=== PATIENT | female | born 1965 | race Caucasian/White ===

== ENCOUNTER → 2020-04-24 12:36 | Outpatient (CLI) | payer OTHER, SELFPAY ==
--- NOTE | ~2020-04-24 | MM_ITS ---
EXAMINATION: MM screening luciana BI w dina HISTORY: Screening mammogram TECHNIQUE: Craniocaudal and mediolateral oblique 3-D tomosynthesis images were obtained and synthetic 2-D images were generated. CAD analysis was submitted and interpreted. COMPARISON: 07/17/2017, 05/03/2016, 04/17/2015 bilateral digital screening mammogram examinations BREAST PARENCHYMAL COMPOSITION: The breasts are heterogeneously dense, which may obscure small masses . FINDINGS: There is no evidence of suspicious mass, calcification, or architectural distortion to sugg est malignancy in either breast. There has been no suspicious interval change. IMPRESSION: 1. No mammographic evidence of malignancy. 2. Recommend routine screening mammography in one year. BI-RADS Category 1: Negative Reviewed, dictated and finalized at location A.
== END ==
PROVIDERS: Visit Provider Obstetrics & Gynecology
DX: Z12.31 Encounter for screening mammogram for malignant neoplasm of breast (principal)
CPT/HCPCS: 77063; 77067

== ENCOUNTER 2021-01-20 08:06 | Emergency (ER) | payer OTHER, SELFPAY ==
[2021-01-20 08:10] VITALS: BP 103/71; PULSE 93; RESP 18; TEMP 36.7; O2SAT 98
--- NOTE | 2021-01-20 08:25 | ED.FEMALEGU ---
HPI - Female Genitourinary General Chief complaint: Urogenital-Female Stated complaint: Poss UTI Time Seen by Provider: 01/20/21 08:30 Source: patient and RN notes reviewed Mode of arrival: ambulatory Limitations: no limitations History of Present Illness HPI Narrative: 55-year-old female presents concern for urinary tract infection. Reports symptoms started last night with dysuria, urgency. She denies fever, nausea, vomiting, back pain, hematuria. Reports she had a sleeve gastrectomy 1 week ago. MD elicited complaint: UTI Related Data Allergies Allergy/AdvReac Type Severity Reaction Status Date / Time No Known Allergies Allergy Unknown Verified 01/20/21 08:20 Review of Systems Review of Systems: Narrative: CONSTITUTIONAL: Denies malaise, chills, sweats, or fever. CARDIOVASCULAR: Denies chest pain, palpitations, or edema. RESPIRATORY: Denies cough or dyspnea. GASTROINTESTINAL: Denies abdominal pain, nausea, vomiting GENITOURINARY: Reports dysuria, urgency. Denies flank pain, frequency, hematuria. SKIN: Denies rash or itching. MUSCULOSKELETAL: Denies back pain or myalgia. All systems reviewed & are unremarkable except as noted in HPI and below PMFSH Past Medical History Medical History (Updated 01/20/21 @ 08:36 by Jaylin Capone NP) History of vaginal delivery HTN (hypertension), benign Hyperlipidemia Hypothyroidism Obesity (BMI 30.0-34.9) Surgical History Surgical History H/O: section History of ankle surgery Family History Family History Father Diabetes mellitus Family history of cardiovascular disease Mother Hypertension Social History Social History Smoking status: Never smoker Second hand tobacco smoke exposure: No Alcohol intake: current Comments At time of signature, agree with nursing past medical, surgical, social and family history. There is no relevant family history pertinent to the presenting complaint Exam Narrative: Exam Narrative: GENERAL: Well-appearing, well-nourished, and in no acute distress. HEAD: Normocephalic. EYES: PERRLA, conjunctivae clear. NECK: Supple. No lymphadenopathy CHEST: Clear to auscultation. No respiratory distress. HEART: Regular rate and rhythm. ABDOMEN: Soft, nontender upon palpation, nondistended, normal active bowel sounds, no palpable or pulsatile masses, no guarding. No CVA tenderness SKIN: Warm, dry, no rash. NEURO: Alert and oriented x3. PSYCH: Normal mood and affect Course Course Emergency Course: Patient is aware of diagnosis, understands and agrees to treatment plan. Anticipatory guidance given. Patient agrees to follow-up as directed and is aware of reasons to seek care at the emergency department. Portions of this record may have been created with voice recognition software Vital Signs Vital signs: Vital Signs Temperature 98.1 F 01/20/21 08:10 Pulse Rate 93 01/20/21 08:10 Respiratory Rate 18 01/20/21 08:10 Blood Pressure 103/71 01/20/21 08:10 Pulse Oximetry 98 01/20/21 08:10 Temperature 98.1 F 01/20/21 08:10 Pulse Rate 93 01/20/21 08:10 Respiratory Rate 18 01/20/21 08:10 Blood Pressure 103/71 01/20/21 08:10 Pulse Oximetry 98 01/20/21 08:10 Reviewed. MDM - Female Genitourinary MDM Narrative Medical decision making narrative: Exam findings and UA show no acute concerns or changes; patient is non-toxic appearing and is in no distress. Patient is appropriate for outpatient treatment and follow-up. Differential Diagnosis Differential diagnosis: Likely urinary tract infection and cystitis Lab Data Labs: Urine Glucose Negative Reference Range: Negative Urine Bilirubin Negative Reference Range: Nega
== END 2021-01-20 08:45 | disposition home or self-care (01) ==
PROVIDERS: Emergency Provider Nurse Practitioner; PCP Family Medicine
DX: R30.0 Dysuria (principal); R39.15 Urgency of urination; Z98.84 Bariatric surgery status; I10 Essential (primary) hypertension; E78.5 Hyperlipidemia, unspecified; E03.9 Hypothyroidism, unspecified
CPT/HCPCS: 81003; 87077; 87086; 87088; 87186; 99213; G0463

== ENCOUNTER → 2022-08-06 15:36 | Outpatient (CLI) | payer OTHER, SELFPAY ==
--- NOTE | ~2022-08-06 | MM_ITS ---
EXAMINATION: MM screening luciana BI w dina HISTORY: Screening mammogram TECHNIQUE: Craniocaudal and mediolateral oblique 3-D tomosynthesis images were obtained and synthetic 2-D images were generated. CAD analysis was submitted and interpreted. COMPARISON: 04/24/2020, 07/17/2017, 05/03/2016 bilateral screening mammogram examinations BREAST PARENCHYMAL COMPOSITION: The breasts are heterogeneously dense, which may obscure small masses . FINDINGS: There is no evidence of suspicious mass, calcification, or architectural distortion to sugg est malignancy in either breast. There has been no suspicious interval change. IMPRESSION: 1. No mammographic evidence of malignancy. 2. Recommend routine screening mammography in one year. BI-RADS Category 1: Negative Reviewed, dictated and finalized at location A. [facility]
== END ==
PROVIDERS: PCP Family Medicine; Visit Provider Obstetrics & Gynecology
DX: Z12.31 Encounter for screening mammogram for malignant neoplasm of breast (principal)
CPT/HCPCS: 77063; 77067

== ENCOUNTER 2024-11-24 08:21 | Emergency (ER) | payer OTHER, SELFPAY ==
[2024-11-24 08:25] VITALS: BP 98/76; PULSE 103; RESP 16; TEMP 36.7; O2SAT 98
--- OUTSIDE RECORDS SUMMARY | 2024-11-24 08:34 | XMS_ITS | Clinical Summary ---
Author Organization [facility] [address] Address [address] [place] [address] Care Team Providers Care Residential Real Estate Appraiser Name Role Phone Ashvin Clemente MD Primary Care Provider [phone] Allergies No known active allergies Medications FLUoxetine (PROzac) 20 mg capsule Take 1 capsule (20 mg total) by mouth daily [address] (PROTONIX) 40 mg EC tablet 9 Active levothyroxine (SYNTHROID) 125 mcg tablet Take 1 tablet (125 mcg total) by mouth early childhood associate teacher before breakfast Active cyclobenzaprine (FLEXERIL) 10 mg tablet Take 1 tablet (10 mg total) by mouth daily Active coenzyme Q10 10 mg capsule Take 1 capsule (10 mg total) by mouth daily Active pitavastatin calcium (LIVALO) 1 mg tablet Take 1 tablet (1 mg total) by mouth nightly 30 tablet 11 1 Active atorvastatin (LIPITOR) 10 mg tablet Take 1 tablet (10 mg total) by mouth nightly 2 Active guaiFENesin-cod eine (GUAITUSS AC) liquid 100-10 mg/5 mL TAKE 5 ML BY MOUTH EVERY 4 HOURS NEEDED FOR COUGH 2 Active famotidine (PEPCID) 20 mg tablet Take 1 tablet (20 mg total) by mouth 2 (two) times a day 1 Active ALPRAZolam (XANAX) 0.25 mg tablet TAKE 1 TABLET BY MOUTH EVERY 4 HOURS NEEDED FOR FLYING 3 Active aspirin 81 mg enteric coated tablet Take 1 tablet (81 mg total) by mouth daily 2 Active Active Problems Problem Noted Date Diagnosed Date Gastroesophageal reflux disease without esophagi tis 04/20/2024 Vitamin D deficiency 04/08/2022 Age-related osteoporosis wit hout current pathological fracture 02/12/2019 Overview (01/03/2020): Reclast 04/13/2019, Ergocalciferol monthly, dietary calcium. Exercise running, swim, weight and biking. Ankle fracture in 2005. Surgical History Surgery Date Site/Laterality Comments ANKLE SURGERY SECTION Medical History Medical History Date Comments Hypertension Hyperlipidemia Thyroid disease Acid indigestion Gastroesophageal reflux disease without esophagi tis 04/20/2024 Family History Medical History Relation Name Comments Heart disease Father Hypertension Father Osteoporosis Maternal Grandmother Family history of osteoporosis - (Added by TW Conv) Hip fracture Mother Hypertension Mother Osteoporosis Mother Family history of osteoporosis - (Added by TW Conv) Heart defect Other 1 Heart abnormali ty - (Added by TW Conv) Osteoporosis Other 2 Family history of osteoporosis - (Added by TW Conv) Osteoporosis Paternal Grandmother Family history of osteoporosis - (Added by TW Conv) Broken bones Neg Hx Kyphosis Neg Hx Scoliosis Neg Hx Relation Name Status Comments Brother Alive Father (Age 72) Maternal Grandmother Mother Alive Other 1 Other 2 Paternal Grandmother Social History Tobacco Use Types Packs/Day Years Used Date Smoking Tobacco: Never Smokeless Tobacco: Never Tobacco Cessation:Counseling Given: Not Answered Alcohol Use Standard Drinks/Week Comments Yes 1 (1 standard drink = 0.6 oz pur e alcohol) weekly Comments Unknown Sex and Gender Information Value Date Recorded Sex Assigned at Not on file 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 Gender Identity Not on file Sexual Orientation Not on file Obstetrics History Last Filed Vital Signs Vital Sign Reading Time Taken Comments Blood Pressure 126/82 06/04/2024 10:50 AM CDT Pulse 72 06/04/2024 10:50 AM CDT Temperature 36.6 C (97.9 F) 06/04/2024 10:50 AM CDT Respiratory Rate 18 06/04/2024 10:50 AM CDT Oxygen Saturation 100% 06/04/2024 10:50 AM CDT Inhaled Oxygen Concentration - - Weight 61.4 kg (135 lb 4.8 oz) 04/20/2024 8:46 A M CDT Height 156.2 cm (5' 1.5 ) 04/20/2024 8:46 AM CDT Body Mass Index 25.15 04/20/2024 8:46 AM CDT Plan of Treatment Health Maintenance Due Date Last Done Comments Breast Cancer Screening-Mammogram 1964 Cervical Cancer Screening 1964 Colon Cancer Screening-Colonoscopy 1964 Depression Screening 1964 Hepatitis C Screening 1964 DTaP/Tdap/Td Vaccine (1 - Tdap) 1975 Hepatitis B Screening 1982 Regular Well Visit/Exam 18-64 1982 Zoster Vaccine (1 of 2) 2014 Covid-19 Vaccine (2023-2 5 season) 2024 12/08/2020, 11/18/2020 Influenza Vaccine (#1) 2024 Pneumococcal vaccine <65 Aged Out No longer eligible based on patient's age to complete this topic Insurance [facility] CHOICE [facility]US [facility] CHOICE PLUS Care Teams Residential Real Estate Appraiser Relationship Specialty Start Date End Date Ashvin Clemente MD PCP - General Family Medicine 10/19/18
--- OUTSIDE RECORDS SUMMARY | 2024-11-24 08:34 | XMS_ITS | CONTINUITY OF CARE DOCUMENT ---
Author Name digna sawyer Address Unknown Organization [facility] Address [address] [place] [address] [address] [place] [address] Phone [phone] Care Team Providers Care Air Tucker Name Role Phone Mathew JUSTIN, Tmoi Unavailable [phone] NEAL OAKES MD Unavailable NEAL OAKES MD Unavailable PROBLEMS Condition Status Date Provider Notes Cardiovascular screening active Alyx Clark INSURANCE PROVIDERS Payer name Policy type / Coverage type [place] red republican ID SELF PAY TREATMENT PLAN Date Name CT, Coronary Calcium Score HISTORY OF PROCEDURES Procedure Date Procedure Name Provider Procedure Notes S tatus CT- Coronary CA score Tomi Carmona MD completed
--- OUTSIDE RECORDS SUMMARY | 2024-11-24 08:34 | XMS_ITS | Encounter Summary ---
Author Organization [facility] Address [address] [place] [address] Care Team Providers Care Legal Administrative Assistant Name Role Phone Ashvin Clemente MD Primary Care Provider [phone] Encounter Details Date Type Department Care Team (Late st Contact Info) Description 11/23/2024 External Device Data [facility] ABSTRACTION Provider, Abstract NO ADDRESS ON FILE Social History Tobacco Use Types Packs/Day Years Used Date Smoking Tobacco: Never Smokeless Tobacco: Never Alcohol Use Standard Drinks/Week Comments Yes 0 (1 standard drink = 0.6 oz pur e alcohol) social Comments No Sex and Gender Information Value Date Recorded Sex Assigned at Not on file 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 [place] [address] Martín Camarena, [place] [address] [facility] [address] [place] [address] documented as of this encounter Visit Diagnoses Not on filedocumented in this encounter Care Teams Legal Administrative Assistant Relationship Specialty Start Date End Date Ashvin Clemente MD PCP - General Family Practice 01/02/21 documented as of this encounter
--- OUTSIDE RECORDS SUMMARY | 2024-11-24 08:34 | XMS_ITS | Referral Summary ---
Author Organization [facility] [address] Address [address] [place] [address] Care Team Providers Care Architectural Wood Model Maker Name Role Phone Ashvin Clemente MD Primary Care Provider [phone] Allergies No known active allergies Medications FLUoxetine (PROzac) 20 mg capsule Take 1 capsule (20 mg total) by mouth daily [address] (PROTONIX) 40 mg EC tablet 9 Active levothyroxine (SYNTHROID) 125 mcg tablet Take 1 tablet (125 mcg total) by mouth early childhood education coordinator before breakfast Active cyclobenzaprine (FLEXERIL) 10 mg [...] weight and biking. Ankle fracture in 2005. 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
--- OUTSIDE RECORDS SUMMARY | 2024-11-24 08:34 | XMS_ITS | Clinical Summary ---
Author Organization [facility] Address [address] [place] [address] Phone Care Team Providers Care Pmo Analyst Name Role Phone Ashvin Clemente MD Primary Care Provider [phone] Allergies No known active allergies Medications levothyroxine 125 mcg tablet Take 112 mcg by mouth daily in the morning. Active pantoprazole sodium (PANTOPRAZOLE ORAL) Take 40 mg by mouth daily. Active FLUoxetine (PROzac) 20 mg tablet Take 20 mg by mouth daily. Active famotidine (PEPCID) 20 mg tablet Take 1 Tablet (20 mg) by mouth 2 times daily. 60 Tablet 2 01/13/2021 1:40 PM CDT 1 Active Additional Information Patient not taking.Reported on 03/23/2024 atorvastatin (LIPITOR) 10 mg tablet Take 10 mg by mouth daily. Active cyclobenzaprine (FLEXERIL) 10 mg tablet Take 10 mg by mouth 3 times daily as needed for Spasm. Active aspirin (Chelita Low Dose Aspirin) 81 mg Tablet, Delayed Release (E.C.) Take 1 Tablet (81 mg) by mouth daily. 30 Tablet 2 Active metoprolol succinate (TOPROL XL) 25 mg Extended Release 24 hour tablet TAKE 1 TABLET BY MOUTH EVERY DAY 90 Tablet 3 3 Active Additional Information Patient taking differently:25 mg Oral DAILY,Taking as needed, Reported on 03/23/2024 ALPRAZolam (XANAX) 0.25 mg tablet TAKE 1 TABLET BY MOUTH EVERY 4 HOURS NEEDED WHEN FLYING Active lisinopriL (PRINIVIL) 2.5 mg tablet TAKE 1 TABLET (2.5MG) BY MOUTH ONCE DAILY 4 Active Active Problems Problem Noted Date Diagnosed Date Obesity (BMI 30.0-34.9) 01/12/2021 HTN (hypertension), benign 01/12/2021 Palpitations 01/12/2021 Hypothyroidism 01/12/2021 HLD (hyperlipidemia) 01/12/2021 GERD (gastroesophageal reflux disease) Major depression 01/12/2021 Age-related osteoporosis wit hout current pathological fracture 02/12/2019 Overview (01/12/2021): Reclast 04/13/2019, Ergocalciferol monthly, dietary calcium. Exercise running, swim, weight and biking. Ankle fracture in 2005. Chest discomfort Encounters Date Type Department Care Team Description 11/23/2024 External Device Data ST[facility] ABSTRACTION Provider, Abstract 10/20/2024 External Device Data [facility] ABSTRACTION Provider, Abstract 10/19/2024 External Device Data [facility] ABSTRACTION Provider, Abstract 10/05/2024 External Device Data [facility] ABSTRACTION Provider, Abstract from Last 3 Months Social History Tobacco Use Types Packs/Day Years Used Date Smoking Tobacco: Never Smokeless Tobacco: Never Tobacco Cessation:Counseling Given: Not Answered Alcohol Use Standard Drinks/Week Comments Yes 0 (1 standard drink = 0.6 oz pur e alcohol) social Comments No Sex and Gender Information Value Date Recorded Sex Assigned at Not on file 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 Gender Identity Not on file Sexual Orientation Not on file Last Filed Vital Signs Vital Sign Reading Time Taken Comments Blood Pressure 108/66 03/23/2024 9:31 AM CDT Pulse 74 03/23/2024 9:31 AM CDT Temperature 37.1 C (98.7 F) 04/17/2022 7:15 PM CDT Respiratory Rate 15 04/17/2022 7:15 PM CDT Oxygen Saturation 98% 03/23/2024 9:31 AM CDT Inhaled Oxygen Concentration - - Weight 61.7 kg (136 lb) 03/23/2024 9:31 AM CDT Height 157.5 cm (5' 2 ) 03/23/2024 9:31 AM CDT Body Mass Index 24.87 03/23/2024 9:31 AM CDT Plan of Treatment Upcoming Encounters Date Type Department Care Team (Late st Contact Info) Description 03/22/2025 9:30 AM CDT Office Visit [facility]ART AND [facility]ASCULAR EP AT [facility] [address] [place] [phone] Martín Camarena DNP [address] [place] [address] Health Maintenance Due Date Last Done Comments DTAP/TDAP/TD VACCINES (1 - Tdap) 1983 CERVICAL CANCER SCREENING 1994 BREAST CANCER SCREENING 2004 COLORECTAL SCREENING 2009 Colorectal Cancer Screening 2009 FIT-DNA Q 3 years 2009 FIT/FOBT Q 1 year 2009 Flex Sig/CT Colonography Q 5 years 2009 ZOSTER VACCINE (1 of 2) 2014 INFLUENZA VACCINE (#1) 2024 RSV VACCINE (60+ or ) (1 - 1-dose 75+ series) 2039 HEPATITIS B VACCINES Aged Out No long er eligible based on patient's age to complete this topic PNEUMOCOCCAL VACCINE 0-64 YEARS Aged Out No longer eligible based on patient's age to complete this topic Medical Devices Implanted Type Area Client Partner Device Identifier Shelf Expiration Date Model / Serial / Lot Seamguard Endogia 60 Prpl [id number] - [id number] Implanted:Qt y: 1 on 01/12/2021 by Beverley Esquivel MD at [facility] N/A: Stomach [employer] [id number] 06/16/2023 12BSGTRI 60P / / [id number] Seamguard Endogia 60 Prpl [id number] - [id number] Implanted:Qt y: 1 on 01/12/2021 by Beverley Esquivel MD at [facility] N/A: Stomach [employer] [id number] 06/20/2023 12BSGTRI 60P / / [id number] Seamguard Endogia 60 Blk [id number] - [id number] Implanted:Qt y: 1 on 01/12/2021 by Beverley Esquivel MD at [facility] N/A: Stomach [employer] [id number] 06/23/2023 12BSGTRI 60B / / [id number] Seamguard Endogia 60 Blk [id number] - [id number] Implanted:Qt y: 1 on 01/12/2021 by Beverley Esquivel MD at [facility] N/A: Stomach [employer] [id number] 06/23/2023 12BSGTRI 60B / / [id number] Dev Vns Vasc Clsr Vascade M[address] St [id number] - [id number] Implanted:Qt y: 1 on 04/17/2022 at [facility] Closure Device Right: Groin [employer] 01/30/2024 800-612C -10U / / [id number] Dev Vns Vasc Clsr Vascade Mvp [address] [id number] - [id number] Implanted:Qt y: 1 on 04/17/2022 at [facility] Closure Device Right: Groin [employer] 01/30/2024 800-612C -10U / / [id number] Dev Vns Vasc Clsr Vascade Mvp [address] [id number] - [id number] Implanted:Qt y: 1 on 04/17/2022 at [facility] Closure Device Right: Groin [employer] 01/30/2024 800-612C -10U / / [id number] Insurance RX [employer] Member Subscriber Plan / Payer (Ef fective 2021-Present) Name:Savanna Mason Relation to Subscriber:Not on file Name:Savanna Mason Subscriber ID:Not on file Payer ID:Not on file Group ID:[id number] Type:RX Commercial Address: [place]AYLA[address] KEN [employer]NAL) [facility] CHOICE [id number] Advance Directives For more information, please contact: [phone] * Full Code (Latest Code Status on File) Date Activated Date Inactivated Comments 04/17/2022 5:55 PM 04/17/2022 10:37 PM * Full Code Date Activated Date Inactivated Comments 04/17/2022 12:09 PM 04/17/2022 5:55 PM * Full Code Date Activated Date Inactivated Comments 01/12/2021 2:56 PM 01/13/2021 4:14 PM Care Teams Pmo Analyst Relationship Specialty Start Date End Date Ashvin Clemente MD PCP - General Family Practice 01/02/21
--- OUTSIDE RECORDS SUMMARY | 2024-11-24 08:36 | XMS_ITS | CONTINUITY OF CARE DOCUMENT ---
Author Name digna sawyer Address Unknown Organization [facility] Address [address] [place] [address] [address] [place] [address] Phone [phone] Care Team Providers Care Dietary Aide Teacher Name Role Phone Mathew JUSTIN, Tomi Unavailable NEAL OAKES MD Unavailable NEAL OAKES MD Unavailable PROBLEMS Condition Status Date Provider Notes Cardiovascular screening active Alyx Clark INSURANCE PROVIDERS Payer name Policy type / Coverage type [place] red democrat ID SELF PAY TREATMENT PLAN Date Name CT, Coronary Calcium Score HISTORY OF PROCEDURES Procedure Date Procedure Name Provider Procedure Notes S tatus CT- Coronary CA score Tomi Carmona MD completed
--- NOTE | 2024-11-24 08:39 | ED.URI ---
HPI - URI/Sore Throat General Chief Complaint: Upper Respiratory Infection Stated Complaint: Sore Throat Time Seen by Provider: 11/24/24 08:39 Source: patient, RN notes reviewed and old records reviewed Mode of arrival: ambulatory Limitations: no limitations History of Present Illness HPI Narrative: 59 year old female presents to [facility] care with complaints of sore throat, headache and some intermittent fevers, some body aches, for the past 3 days. Patient reports painful swallowing describes throat discomfort as burning. Patient has been taking Tylenol for her discomfort and intermittent fevers. MD elicited complaint: sore throat Onset (ago): day(s) (3) Consistency: constant Severity: moderate Able to tolerate fluids by mouth: Yes Exacerbating factors: swallowing Treatments prior to arrival: acetaminophen Related Data Allergies Allergy/AdvReac Type Severity Reaction Status Date / Time No Known Allergies Allergy Unknown Verified 07/28/24 15:23 Review of Systems Review of Systems: CONSTITUTIONAL: reports malaise, chills, sweats, or fever. EYES: Denies visual changes, redness, or discharge. ENT: Reports rhinorrhea, congestion, no sinus pain, no otalgia and positive sore throat. CARDIOVASCULAR: Denies chest pain, palpitations, or edema. RESPIRATORY: Reports occasional dry cough.? Denies dyspnea. GASTROINTESTINAL: Denies abdominal pain, nausea, vomiting, diarrhea SKIN: Denies rash or itching. MUSCULOSKELETAL:Reports myalgia. NEUROLOGIC: Reports headache. All systems reviewed & are unremarkable except as noted in HPI and below PMFSH Past Medical History Medical History Cough Fatigue HTN (hypertension), benign Obesity (BMI 30.0-34.9) History of vaginal delivery Hyperlipidemia Hypothyroidism Reflux esophagitis Surgical History Surgical History H/O cardiac radiofrequency ablation S/P laparoscopic sleeve gastrectomy History of ankle surgery H/O: section Family History Family History Father Diabetes mellitus Family history of cardiovascular disease Mother Hypertension Vascular dementia Social History Social History Smoking status: Never smoker Second hand tobacco smoke exposure: No Alcohol intake: current Substance use: never Lack of Transportation: No Lack of Food: Never True Current Housing: I Have Housing Concerned About Future Housing: No Difficulty Paying Gas/Electric Bills: No Difficulty Paying for Meds: No Currently Unemployed: No Education: Master's Degree or Higher Difficulty w/ Childcare or Family Care: No Living arrangements: with family Occupation/Education: occupation Gender identity (if verbalized by the patient): Female Sexual Orientation (if Verbalized by the Patient): Straight or Heterosexual Spiritual care concerns: No Comments At time of signature, agree with nursing past medical, surgical, social and family history. There is no relevant family history pertinent to the presenting complaint Exam Narrative: GENERAL: Well-appearing, well-nourished, and in no acute distress. HEAD: Normocephalic EYES: PERRLA, conjunctivae clear ENT: Nares clear, turbinates edematous and erythematous, clear discharge. Mucous membranes moist. TM pearly campos with dull light reflex bilaterally; no tragal tenderness. Oropharynx erythematous without lesions. Tonsils red and enlarged and without exudate, no drooling, no hoarseness, no trismus, uvula midline.post nasal drainage noted painful swallowing NECK: Supple. lymphadenopathy CHEST: Clear to auscultation, breath sounds equal. No wheezing, rhonchi, rales, or stridor. No respiratory distress, speaks in full sentences. occasional dry cough SAO2 98% on room air HEART: Regular rate and rhythm. No murmur heard. SKIN: Warm, dry, no rash. NEURO: Alert and oriented x3. PSYCH: Normal mood and affect Course Course Emergency Course: Patient is aware of diagnosis, understands and agrees to treatment plan.? Anticipatory guidance given.? Patient agrees to follow-up as directed and is aware of reasons to seek care at the emergency department. Portions of this record may have been created with voice recognition software Level of Care: Express Care Visit Vital Signs Vital signs: Vital Signs Temperature 36.7 C 11/24/24 08:25 Pulse Rate 103 H 11/24/24 08:25 Respiratory Rate 16 11/24/24 08:25 Blood Pressure 98/76 L 11/24/24 08:25 Pulse Oximetry 98 11/24/24 08:25 Temperature 36.7 C 11/24/24 08:25 Pulse Rate 103 H 11/24/24 08:25 Respiratory Rate 16 11/24/24 08:25 Blood Pressure 98/76 L 11/24/24 08:25 Pulse Oximetry 98 11/24/24 08:25 Reviewed MDM - URI/Sore Throat MDM Narrative Medical decision making narrative: Differential diagnosis considered: Srivastava virus, strep pharyngitis, allergic rhinitis, upper respiratory tract infection, sinusitis, rhinosinusitis, nasopharyngitis. viral pharyngitis, otitis media, otitis externa, pneumonia, bronchitis, viral cough syndrome, viral syndrome, and influenza.? Exam findings show no acute concerns or changes; patient is non-toxic appearing and is in no distress.? Patient is appropriate for outpatient treatment and follow-up. Differential Diagnosis Differential diagnosis: Likely upper respiratory infection, viral infection, pharyngitis and other (strep pharyngitis) Medical Records Attestation: I reviewed the patient's medical records. Lab Data Attestation: I reviewed the patient's lab results. Lab results narrative: strep screen positive Labs: Lab Results 11/24/24 Range/Units 08:59 POC Grp A Strep Screen Positive (Negative) Critical Care Time Critical Care Time Critical Care Time: No Discharge Plan Discharge Clinical Impression: Acute streptococcal pharyngitis Patient Disposition: Home, Self-Care Condition: Stable Instructions: Antibiotic Form, Strep Throat (ED) Additional Instructions: You tested positive for Group A strep . Take the entire course of antibiotics. Throw away your current toothbrush and begin using a new toothbrush in 48 hours in order to prevent re-infection. Sanitize all reusable water bottles . Do not share items with others. Salt water gargles may alleviate some of the throat discomfort. You can take Tylenol or ibuprofen per the package instructions for pain/fever. Zyrtec Claritin or Tiana daily for sinus congestion drainage If your symptoms persist, change or worsen significantly before you can contact your personal physician then please, without delay, go to the emergency department for further evaluation. Follow-up with PCP in 7-10 days or sooner if needed You need to be on oral antibiotics for 24 hours before returning to work Patient Language: Tajik Prescriptions: New amoxicillin 875 mg tablet 875 mg PO Q12H Qty: 20 0RF Rx Instructions: Take all of prescription No Action alprazolam 0.25 mg tablet 0.25 mg PO Q4H PRN (Reason: flying) Qty: 20 1RF estradiol [Estrace] 0.01 % (0.1 mg/gram) cream 1 g vaginal 2XW Qty: 42.5 0RF levothyroxine 112 mcg tablet 112 mcg PO DAILY Qty: 90 1RF atorvastatin 10 mg tablet 10 mg PO QHS Qty: 90 1RF Follow-up/Referrals: Ashvin Clemente MD [Primary Care Provider] - Stand Alone Forms: Work/School Release IP Time of Disposition: 09:12 Quality [place] Coma Scale Eyes: Open Verbal: Oriented and Alert Motor: Follows Commands [place] Coma Total Score: 15
[2024-11-24 09:00] LABS: EDSTREPNEGPOS1 Positive (Negative)
== END 2024-11-24 09:22 | disposition home or self-care (01) ==
PROVIDERS: Emergency Provider Registered Nurse; PCP Family Medicine
DX: J02.0 Streptococcal pharyngitis (principal); I10 Essential (primary) hypertension; E78.5 Hyperlipidemia, unspecified; E03.9 Hypothyroidism, unspecified; K21.00 Gastro-esophageal reflux disease with esophagitis, without bleeding; E66.9 Obesity, unspecified; Z98.84 Bariatric surgery status; Z68.23 Body mass index [BMI] 23.0-23.9, adult
CPT/HCPCS: 87880; 99213; G0463

== ENCOUNTER 2024-11-24 15:03 | Outpatient (CLI) | payer OTHER, SELFPAY | END 2024-11-24 15:04 | disposition home or self-care (01) | LOC: MICIMG 15:04 | PROVIDERS: PCP Family Medicine; Visit Provider Nurse Practitioner Family | DX: Z12.31 Encounter for screening mammogram for malignant neoplasm of breast (principal) | CPT/HCPCS: 77063; 77067 ==

== ENCOUNTER 2025-03-19 13:34 | Emergency (ER) | payer OTHER, SELFPAY ==
[2025-03-19 13:56] VITALS: BP 111/76; PULSE 78; RESP 16; TEMP 36.6; O2SAT 100
[2025-03-19] MEDS: LIDOCAINE 1% LOCAL INJ 2 ML AMPUL 6 ML INFILTRATE (14:28)
--- NOTE | 2025-03-19 15:59 | ED_ITS ---
HPI - General Adult General Chief complaint: Wound/Laceration Stated complaint: Cut Finger Source: patient Mode of arrival: ambulatory Limitations: no limitations History of Present Illness HPI narrative: Patient presents for evaluation of a laceration to the left index finger that occurred at 9:30 a.m. this morning. She indicates she accidentally cut herself when she was trimming a plant. She states pain in affected area is mild, without numerical rating. She is right-hand dominant. She is up-to-date on tetanus. She is not diabetic. Denies loss of range of motion. Related Data Home Medications ?Medication ?Instructions ?Recorded ?Confirmed ?Last Taken ?Type lisinopril 2.5 mg tablet mg 03/19/25 Unknown History Allergies Allergy/AdvReac Type Severity Reaction Status Date / Time No Known Allergies Allergy Unknown Verified 03/19/25 13:51 Review of Systems Review of Systems: CONSTITUTIONAL: Denies fever, chills, or sweats. EYES: Denies visual changes, redness, or discharge. ENT: Denies rhinorrhea, congestion, sore throat, or otalgia. CARDIOVASCULAR: Denies chest pain, palpitations, or edema. RESPIRATORY: Denies cough or dyspnea. GASTROINTESTINAL: Denies abdominal pain, nausea, vomiting, or diarrhea. GENITOURINARY: Denies dysuria or hematuria. SKIN:Reports laceration to left index finger MUSCULOSKELETAL: Reports pain in left index finger. Denies back pain NEUROLOGIC: Denies headache, numbness, dizziness, or weakness. PSYCHIATRIC: Denies anxiety or depression. [facility] Past Medical History Medical History Cough Fatigue HTN (hypertension), benign Obesity (BMI 30.0-34.9) History of vaginal delivery Hyperlipidemia Hypothyroidism Reflux esophagitis Surgical History Surgical History H/O cardiac radiofrequency ablation S/P laparoscopic sleeve gastrectomy History of ankle surgery H/O: section Family History Family History Father Diabetes mellitus Family history of cardiovascular disease Mother Hypertension Vascular dementia Social History Social History Smoking status: Never smoker Second hand tobacco smoke exposure: No Alcohol intake: current Substance use: never Lack of Transportation: No Lack of Food: Never True Current Housing: I Have Housing Concerned About Future Housing: No Difficulty Paying Gas/Electric Bills: No Difficulty Paying for Meds: No Currently Unemployed: No Education: Master's Degree or Higher Difficulty w/ Childcare or Family Care: No Living arrangements: with family Occupation/Education: occupation Gender identity (if verbalized by the patient): Female Sexual Orientation (if Verbalized by the Patient): Straight or Heterosexual Spiritual care concerns: No Exam Narrative: GENERAL: Well-appearing, well-nourished, and in no acute distress. HEAD: Normocephalic, atraumatic. EYES: PERRLA and EOMI. ENT: Nares clear, no rhinorrhea or epistaxis. Mucous membranes moist. Oropharynx without tonsillar hypertrophy exudate or other lesions. Bilateral TMs pearly campos nonbulging NECK: Supple. No adenopathy or masses. No carotid bruits or JVD CHEST: Clear to auscultation. No respiratory distress. No wheezes rales or rhonchi HEART: Regular rate and rhythm. No murmur heard. Normal peripheral pulses. ABDOMEN: Soft, nontender, nondistended, normal active bowel sounds. EXTREMITIES: Normal range of motion. No edema. SKIN: There is a 3 cm linear laceration to the dorsal aspect of the proximal phalanx of the left index finger. Wound bed is pink and there is dried sanguinous drainage present NEURO: No focal deficits. Alert and oriented x3. PSYCH: Normal mood and affect. Course Course Emergency Course: This is a 59-year-old female who presented for evaluation of a laceration to the left index finger. She is UTD on tetanus. She had no loss of ROM to suggest tendon injury. No obvious osseous involvement. Wound was thoroughly irrigated and closed with six sutures. Pt tolerated well. Advised on wound care. Provided with finger splint. Follow up with primary provider. Go to the ER for worsening symptoms. Pt in agreement with plan of care. Level of Care: Express Care Visit Vital Signs Vital signs: Vital Signs Temperature 36.6 C 03/19/25 13:56 Pulse Rate 78 03/19/25 13:56 Respiratory Rate 16 03/19/25 13:56 Blood Pressure 111/76 03/19/25 13:56 Pulse Oximetry 100 03/19/25 13:56 Temperature 36.6 C 03/19/25 13:56 Pulse Rate 78 03/19/25 13:56 Respiratory Rate 16 03/19/25 13:56 Blood Pressure 111/76 03/19/25 13:56 Pulse Oximetry 100 03/19/25 13:56 Procedures Laceration Laceration 1: Date: 03/19/25 Time: 15:00 Site: other (left index finger) Size (cm): 3 Description: linear Local Anesthetic: lidocaine 1% Amount of anesthesia used (mL): 5 Pre-repair: wound explored and irrigated ====== Skin Level ====== Skin layer closed with: nylon Size (cm): 5-0 Number of sutures: 6 Technique: simple, interrupted ====== Subcutaneous Layer ====== ====== Muscle Layer ====== ====== Tendon Layer ====== Orthopedic Splinting/Casting Injury #1: Splinting/Casting Date: 03/19/25 Splinting/Casting Time: 15:00 Side: left Upper Extremity Injury Location: finger (left index finger) Upper Extremity Immobilizer: aluminum form splint Medical Decision Making Vital Signs Vital Signs: Vital Signs Temperature 36.6 C 03/19/25 13:56 Pulse Rate 78 03/19/25 13:56 Respiratory Rate 16 03/19/25 13:56 Blood Pressure 111/76 03/19/25 13:56 Pulse Oximetry 100 03/19/25 13:56 Temperature 36.6 C 03/19/25 13:56 Pulse Rate 78 03/19/25 13:56 Respiratory Rate 16 03/19/25 13:56 Blood Pressure 111/76 03/19/25 13:56 Pulse Oximetry 100 03/19/25 13:56 Discharge Plan Discharge Clinical Impression: Finger laceration Patient Disposition: Home Condition: Stable Instructions: Antibiotic Form, Care For Your Stitches (ED), Laceration (ED) Additional Instructions: WASH AREA THREE TIMES DAILY UNDER RUNNING WATER WITH ANTIBACTERIAL SOAP DO NOT SUBMERGE THE AREA UNDER WATER PAT DRY APPLY NEOSPORIN PLEASE WEAR YOUR SPLINT YOU SHOULD HAVE SUTURES REMOVED IN 7-10 DAYS Patient Language: Par[place]ayan Prescriptions: No Action lisinopril 2.5 mg tablet atorvastatin 10 mg tablet 10 mg PO QHS Qty: 90 1RF pantoprazole 40 mg tablet,delayed release (DR/EC) 40 mg PO QAM Qty: 90 1RF alprazolam 0.25 mg tablet 0.25 mg PO Q4H PRN (Reason: flying) Qty: 20 1RF fluoxetine [Prozac] 20 mg capsule 20 mg PO DAILY Qty: 90 1RF levothyroxine 112 mcg tablet 112 mcg PO DAILY Qty: 90 1RF cyclobenzaprine 10 mg tablet 10 mg PO TID PRN (Reason: muscle spasm) Qty: 30 3RF Follow-up/Referrals: Serge Patel MD [Physician] - Time of Disposition: 15:28
== END 2025-03-19 15:30 | disposition home or self-care (01) ==
PROVIDERS: Emergency Provider Nurse Practitioner
DX: S61.211A Laceration without foreign body of left index finger without damage to nail, initial encounter (principal); W45.8XXA Other foreign body or object entering through skin, initial encounter; Y93.H2 Activity, gardening and landscaping; I10 Essential (primary) hypertension; E66.9 Obesity, unspecified; Z68.24 Body mass index [BMI] 24.0-24.9, adult; E78.5 Hyperlipidemia, unspecified; E03.9 Hypothyroidism, unspecified; K21.00 Gastro-esophageal reflux disease with esophagitis, without bleeding; Z98.84 Bariatric surgery status
CPT/HCPCS: 12002; 99212; G0463; J2003